=== PATIENT | female | born 1965 | race American Indian/Alaskan Native ===

== ENCOUNTER 2020-11-25 09:54 | Outpatient (CLI) | payer OTHER | END 2020-11-25 09:55 | disposition home or self-care (01) | LOC: MAMMO 09:54 | PROVIDERS: ATTEND Student in an Organized Health Care Education/Training Program | DX: Z12.31 Encounter for screening mammogram for malignant neoplasm of breast (principal) | CPT/HCPCS: 77067 ==

== ENCOUNTER 2021-02-21 08:59 | Outpatient (CLI) | payer OTHER ==
--- NOTE | 2021-02-21 10:36 | XRay Report ---
CERVICAL SPINE 5 VIEWS INDICATION / CLINICAL INFORMATION: BACK PAIN. COMPARISON: None available. FINDINGS: VERTEBRAE: No acute fracture. No significant malalignment. DISC SPACES / FACET JOINTS:Anterior osteophytosis at the C5-6 and C6-7 levels. No significant disc sp jyoti narrowing or facet arthropathy. PARASPINAL SOFT TISSUES:No significant abnormality. ADDITIONAL FINDINGS: None. Signer Name: Dony Davalos MD Signed: 02/21/2021 10:31 AM Workstation Name: [id number]
--- NOTE | 2021-02-21 10:37 | XRay Report ---
LUMBAR SPINE 3 VIEWS INDICATION / CLINICAL INFORMATION: BACK PAIN. COMPARISON: None available. FINDINGS: VERTEBRAE: No acute fracture. No significant malalignment. DISC SPACES / FACET JOINTS:Multilevel disc space narrowing, most prominent at L4-5 and L5-S1. Facet a rthropathy at the L4-5 and L5-S1 levels with suspected mild foraminal narrowing at L4-5 and moderate foraminal stenosis at L5-S1. PARASPINAL SOFT TISSUES:No significant abnormality. ADDITIONAL FINDINGS: None. Signer Name: Dony Davalos MD Signed: 02/21/2021 10:32 AM Workstation Name: [employer] [id number]
== END 2021-02-21 09:00 | disposition home or self-care (01) ==
LOC: XRAY 08:59
PROVIDERS: ATTEND Internal Medicine
DX: M47.817 Spondylosis without myelopathy or radiculopathy, lumbosacral region (principal); M25.78 Osteophyte, vertebrae
CPT/HCPCS: 72040; 72100

== ENCOUNTER 2021-11-23 10:29 | Outpatient (CLI) | payer OTHER ==
--- NOTE | 2021-11-23 12:09 | Ultrasound Report ---
BILATERAL DIGITAL DIAGNOSTIC MAMMOGRAM WITH CAD CONVENTIONAL, 11/23/2021 LEFT BREAST ULTRASOUND CLINICAL INFORMATION / INDICATION: LT LUMP TECHNIQUE: Digital bilateral mammographic imaging was performed. Limited ultrasound was performed. Th is examination was interpreted with the benefit of Computer-Aided Detection (CAD) analysis. COMPARISON: 11/25/2020 FINDINGS: Breast Density: There are scattered areas of fibroglandular density. MAMMOGRAPHIC FINDINGS: No dominant mass, suspicious calcifications, or architectural distortion in ei ther breast. There are scattered bilateral calcifications which appear unchanged. No significant martínez ge. ULTRASOUND FINDINGS: Targeted ultrasound evaluation was performed of the area of interest. No discr ete sonographic abnormality is identified in the left breast in the area of palpable concern. IMPRESSION: No mammographic or sonographic evidence of malignancy. Follow up recommendation: Routine yearly BI-RADS Category 2: BENIGN. A "normal" or negative report should not discourage follow up or biopsy of a clinically significant f inding. A written summary of these findings will be mailed to the patient. The patient will be entered into a mammography reporting system which will generate a reminder letter for the patient's next appointmen t at the appropriate interval. According to the [employer], yearly mammograms are recommended starting at age 40 and continuing as long as a woman is in good health. Breast MRI is recommended for women with an jone roximately 20-25% or greater lifetime risk of breast cancer, including women with a strong family his tory of breast or ovarian cancer and women who have been treated for Hodgkin's disease. Signer Name: Luis A Mckeon MD Signed: 11/23/2021 12:05 PM Workstation Name: [id number]
== END 2021-11-23 10:30 | disposition home or self-care (01) ==
LOC: MAMMO 10:29
PROVIDERS: ATTEND Family Medicine
DX: R92.1 Mammographic calcification found on diagnostic imaging of breast (principal); N63.0 Unspecified lump in unspecified breast
CPT/HCPCS: 77066